=== PATIENT | male | born 1950 | race Caucasian/White ===

== ENCOUNTER 2017-05-06 11:19 | Inpatient (IN) ==
[2017-05-06] MEDS ORDERED: *HR* Promethazine 25 MG/ML VIAL IVP PRN ×2 (12:40→17:27)
[2017-05-06] MEDS ORDERED: Ondansetron 4 MG/2 ML VIAL IVP PRN (12:40)
[2017-05-06] MEDS ORDERED: Acetaminophen 325 MG TABLET PO PRN (12:40)
[2017-05-06] MEDS ORDERED: Naloxone 0.4 MG/ML INJ IVP PRN (12:40)
[2017-05-06] MEDS ORDERED: *HR* HYDROmorphone (PF) 1 MG/ML SYRINGE IVP PRN ×2 (12:40→17:27)
[2017-05-06] MEDS ORDERED: *HR* Morphine 2 MG/ML SYRINGE IVP PRN (12:54)
[2017-05-06] MEDS: Cholecalciferol (D-3) 1,000 UNIT TABLET PO SCH (13:09)
[2017-05-06] MEDS: 0.9 % Sodium Chloride 1,000 ML IVC SCH ×2 (13:24→21:38)
--- NOTE | 2017-05-06 13:34 | Internal Med History&Physical ---
Date of Encounter: 05/06/17 Time of Encounter: 12:30 Assessment and Plan (1) Ankle fracture, left Current visit: Yes Status: Acute Will place the pt into Med Surg for observation Reviewed X ray from [facility] ER - showing Left ankle fx with anteriorly dislocated tibia, fracture of distal fibula and medial malleolus Cont splint Ortho on board.. scheduled for surgery reviewed his labs - no electrolyte abnormalities Reviewed CXR by my self - no acute infiltrates, mild cardiomegaly noticed Reviewed EKG - no acute changes.. NSR with VR -67, No ST, T changes Pt is at low to intermediate risk for surgeries like Ankle fracture repair Cont gentle IVF for now will place him on Lovenox for DVT prophylaxis Qualifiers: Qualified Code(s): S82.892A - Other fracture of left lower leg, initial encounter for closed fracture (2) Anxiety Current visit: Yes Status: Chronic resumed home meds (3) HTN (hypertension) Current visit: Yes Status: Chronic resumed home meds Qualifiers: Qualified Code(s): I10 - Essential (primary) hypertension (4) CHF (congestive heart failure) Current visit: Yes Status: Chronic suspecting CHF in his history not sure about diastolic vs systolic.. mostly diastolic will get a 2 D Echo as routine work up, since he never had one he is not in exacerbation held Lasix due to surgery resumed all other home meds Qualifiers: Qualified Code(s): I50.9 - Heart failure, unspecified (5) DVT prophylaxis Current visit: Yes Status: Acute on Lovenox Internal Medicine - H&P: HPI Chief complaint: Left ankle fracture after fall Admitted From: Emergency Dept Plans for Post Hospital Care: Home History of present illness: Mr. Jacobs is a 66 year old male with known PMH of HTN, HLD, Borderline DM2, moderate MR pt who lives at a fdc was brought into [facility] ER after he sustained a fall this morning with left ankle fracture. As per ER records : Patient lives in a local fdc was getting ready to go to workshop tripped and fell injuring his ankle unable to bear weight this occurred just prior to arrival patient had a previous history of a fracture of one of the ankles in the past patient is having pain in the ankle unable to bear weight obvious deformity per caregiver that the patient does not complain of much pain denies any other injuries. Pt was placed on Splint and transferred to our hospital for further care. ER attending already talked to [facility] consultant Ortho here, who is planning on taking him to OR today. Currently pt is alert, awake and O to self..following all the commands. Seems to be at his baseline mentation ledesma. Past Med Surg Social Fam HX - Past Medical History Medical history: diabetes, GERD, hyperlipidemia, hypertension, other Psychiatric history: anxiety - Past Surgical History Surgical History: other - Social History Smoking Status: Never smoker Smokeless Tobacco Status: No Alcohol use: none Drug use: none Internal Medicine - H&P: Meds Aspirin [Adult Low Dose Aspirin EC] 81 mg PO DAILY 07/14/15 [History] Buspirone HCl [Buspar] 15 mg PO TID 07/14/15 [History] Dutasteride [Avodart] 0.5 mg PO DAILY 07/14/15 [History] Lisinopril 2.5 mg PO DAILY 10/15/15 [History] Montelukast [Singulair] 10 mg PO HS 10/15/15 [History] Quetiapine Fumarate [SEROquel] 100 mg PO BID 10/15/15 [History] Simvastatin [Zocor] 20 mg PO HS 10/15/15 [History] Tamsulosin HCl [Flomax] 0.4 mg PO DAILY 10/15/15 [History] Potassium Chloride [Klor-Con 10] 10 meq PO DAILY 10/03/16 [History] Cholecalciferol (Vitamin D3) [Vitamin D3] 10,000 unit PO QWEEK 10/26/16 [History ] traZODone [TraZODone] 150 mg PO HS 10/26/16 [History] Furosemide [Lasix] 20 mg PO DAILY 01/20/17 [History] Melatonin [Melatin] 6 mg PO HS 01/20/17 [History] Escitalopram [Lexapro] 20 mg PO DAILY 03/29/17 [History] Nystatin POWDER [Nystop] 1 appl TP BID 05/06/17 [History] 3 Allergy/AdvReac Type Severity Reaction Status Date / Time Banana Allergy See Verified 05/04/17 15:09 Comments chlorpheniramine Allergy See Verified 05/04/17 15:09 [From Chlor-Trimeton] Comments diazepam [From Valium] Allergy See Verified 05/04/17 15:09 Comments Penicillins Allergy See Verified 05/04/17 15:09 Comments tuberculin, purified protein Allergy See Verified 05/04/17 15:09 deriva Comments [From Aplisol] All Systems PM: A 10-system review of systems was performed and is negative for pertinent findings except as documented above in the HPI. Review of systems: All the systems are reviewed everything is benign except the systems and symptoms I mentioned in the history of present illness - Constitutional Vitals: Temp Pulse Resp BP Pulse Ox 98.9 F 71 20 149/64 90 05/06/17 12:40 05/06/17 12:40 05/06/17 12:40 05/06/17 12:40 05/06/17 12:40 General appearance: Present: A&O X 1, no acute distress, answers questions appropriately (unable to understand his language, but he does follow all the commands) - Respiratory Respiratory exam: Present: decreased breath sounds, wheezes (mild). Absent: rales, respiratory distress, rhonchi - Cardiovascular Cardiovascular exam: Present: RRR, +S1, +S2. Absent: diastolic murmur, gallop, rubs, systolic murmur - GI/Abdominal GI/Abdominal exam: Present: distended, normal bowel sounds, soft. Absent: rebound, rigid, tenderness - Extremities Exam Extremities exam: Present: tenderness (Left foot), warm. Absent: calf tenderness, mottling Additional comments: moderate swelling noticed around Left ankle.. Splint placed in.. Able to wiggle his toes in left foot. Rest of the joints are ok.
[2017-05-06] MEDS ORDERED: *HR* Enoxaparin 40 MG/0.4 ML SYRINGE SQ ONE (13:54)
[2017-05-06] MEDS ORDERED: Bupivacaine/Clonidine Syringe 1 EACH SYRINGE ONE (15:21)
[2017-05-06] MEDS ORDERED: *HR* FentaNYL (PF) 100 MCG/2 ML VIAL ONE (15:25)
[2017-05-06] MEDS ORDERED: *HR* Propofol 200 MG/20 ML VIAL IVP ONE (15:26)
[2017-05-06] MEDS ORDERED: *HR* Midazolam HCl 2 MG/2 ML VIAL ONE (15:26)
[2017-05-06] MEDS ORDERED: Lidocaine -MPF 2% 2 ML VIAL ONE (15:27)
[2017-05-06] MEDS ORDERED: *HR* Succinylcholine 200 MG/10 ML VIAL IVP ONE (15:27)
[2017-05-06] MEDS ORDERED: *HR* Rocuronium Bromide 50 MG/5 ML VIAL ONE (15:29)
--- NOTE | 2017-05-06 16:31 | Podiatry Consult Note ---
Date of Encounter: 05/06/17 Time of Encounter: 14:29 Assessment and Plan (1) Ankle fracture, left Current visit: Yes Status: Acute At this time the patient needs reduction of the ankle fracture. Currently the ankle is dislocated posteriorly and sooner intervention is better than later. At this time we have had difficulty contacting the cytogenetic technologist. After contacting the risk and legal we were instructed that currently they are not available and the engine house helper stated that she could inform us on the appropriate legal action. she instructed us that the appropriate legal action to take would be to have the hospitalist and surgeon signed the form in place of the cytogenetic technologist. The hospitalist signed the consent form as well as myself. Due to the posteriorly dislocated nature of the ankle fracture and the concern for ischemia on the skin this ankle fracture needs to have surgery sooner than later. The risks of not performing the surgery at this time include ischemia to the skin, wound, infection, loss of limb. The risks and complications will be discussed with the cytogenetic technologist at a later time as he seems to be unavailable. The surgery to be performed is open reduction, internal fixation of the left ankle fracture with reduction of the dislocation. Qualifiers: Qualified Code(s): S82.892A - Other fracture of left lower leg, initial encounter for closed fracture History of Present Illness Chief complaint: left ankle fracture HPI: Mr. Jacobs is a 66 year old male who is unable to give any or an accurate history patient was recently transported from a care facility and we were informed that his legal guardian is an cytogenetic technologist. The carefully related that he fell and injured his ankle. They relate that he receive x-rays and he is now here for an ankle fracture repair if possible. Past Med Surg Social Fam HX - Past Medical History Medical history: diabetes, GERD, hyperlipidemia, hypertension, other Psychiatric history: anxiety - Past Surgical History Surgical History: other - Social History Smoking Status: Never smoker Smokeless Tobacco Status: No Alcohol use: none Drug use: none Medications and Allergies Aspirin [Adult Low Dose Aspirin EC] 81 mg PO DAILY 07/14/15 [History] Buspirone HCl [Buspar] 15 mg PO TID 07/14/15 [History] Dutasteride [Avodart] 0.5 mg PO DAILY 07/14/15 [History] Lisinopril 2.5 mg PO DAILY 10/15/15 [History] Montelukast [Singulair] 10 mg PO HS 10/15/15 [History] Quetiapine Fumarate [SEROquel] 100 mg PO BID 10/15/15 [History] Simvastatin [Zocor] 20 mg PO HS 10/15/15 [History] Tamsulosin HCl [Flomax] 0.4 mg PO DAILY 10/15/15 [History] Potassium Chloride [Klor-Con 10] 10 meq PO DAILY 10/03/16 [History] Cholecalciferol (Vitamin D3) [Vitamin D3] 10,000 unit PO QWEEK 10/26/16 [History ] traZODone [TraZODone] 150 mg PO HS 10/26/16 [History] Furosemide [Lasix] 20 mg PO DAILY 01/20/17 [History] Melatonin [Melatin] 6 mg PO HS 01/20/17 [History] Escitalopram [Lexapro] 20 mg PO DAILY 03/29/17 [History] Nystatin POWDER [Nystop] 1 appl TP BID 05/06/17 [History] 3 Allergy/AdvReac Type Severity Reaction Status Date / Time Banana Allergy See Verified 05/04/17 15:09 Comments chlorpheniramine Allergy See Verified 05/04/17 15:09 [From Chlor-Trimeton] Comments diazepam [From Valium] Allergy See Verified 05/04/17 15:09 Comments Penicillins Allergy See Verified 05/04/17 15:09 Comments tuberculin, purified protein Allergy See Verified 05/04/17 15:09 deriva Comments [From Aplisol] All Systems Reviewed: A 10-system review of systems was performed and is negative for pertinent findings except as documented above in the HPI. Physical Exam - Constitutional Vitals: Temp Pulse Resp BP Pulse Ox 98.1 F 76 20 142/78 91 05/06/17 15:40 05/06/17 15:40 05/06/17 15:40 05/06/17 15:40 05/06/17 15:40 Exam: Capillary fill time intact to the digits. Edema noted to the left ankle. No open lesions, abrasions, or ulcerations. Sensation seems to be intact to the digits as the patient does react to palpation to the digits. Due to an accurate responses is difficult to determine how sensate the patient is. No range of motion of the ankle was tested. The radiographic exam demonstrates a posterior dislocation of the ankle with fibular fracture. See official report for details Results - Labs Labs: All other labs normal. Consult Discharge Plan - Plan Referrals: Muriel Stratton MD [Primary Care Provider] -
[2017-05-06] MEDS ORDERED: Clindamycin 900 MG/50 ML 900 MG/50 ML IV.SOLN IVPB ONE (16:55)
--- NOTE | 2017-05-06 16:55 | Anesthesia Evaluation PreOp ---
Date of Encounter: 05/06/17 Time of Encounter: 16:53 - Past History Planned Operation: ORIF Left Ankle Cardiac History: CHF, HTN, Hyperlipidemia Pulmonary History: Denies Any Significant HX FLAGSTONE LAYER History: Other (MRDD) Other Medical History: Diabetes Type II (borderline), Other Alcohol Use: none Drug use: none Medications and Allergies Aspirin [Adult Low Dose Aspirin EC] 81 mg PO DAILY 07/14/15 [History] Buspirone HCl [Buspar] 15 mg PO TID 07/14/15 [History] Dutasteride [Avodart] 0.5 mg PO DAILY 07/14/15 [History] Lisinopril 2.5 mg PO DAILY 10/15/15 [History] Montelukast [Singulair] 10 mg PO HS 10/15/15 [History] Quetiapine Fumarate [SEROquel] 100 mg PO BID 10/15/15 [History] Simvastatin [Zocor] 20 mg PO HS 10/15/15 [History] Tamsulosin HCl [Flomax] 0.4 mg PO DAILY 10/15/15 [History] Potassium Chloride [Klor-Con 10] 10 meq PO DAILY 10/03/16 [History] Cholecalciferol (Vitamin D3) [Vitamin D3] 10,000 unit PO QWEEK 10/26/16 [History ] traZODone [TraZODone] 150 mg PO HS 10/26/16 [History] Furosemide [Lasix] 20 mg PO DAILY 01/20/17 [History] Melatonin [Melatin] 6 mg PO HS 01/20/17 [History] Escitalopram [Lexapro] 20 mg PO DAILY 03/29/17 [History] Nystatin POWDER [Nystop] 1 appl TP BID 05/06/17 [History] 3 Allergy/AdvReac Type Severity Reaction Status Date / Time Banana Allergy See Verified 05/04/17 15:09 Comments chlorpheniramine Allergy See Verified 05/04/17 15:09 [From Chlor-Trimeton] Comments diazepam [From Valium] Allergy See Verified 05/04/17 15:09 Comments Penicillins Allergy See Verified 05/04/17 15:09 Comments tuberculin, purified protein Allergy See Verified 05/04/17 15:09 deriva Comments [From Aplisol] - Meds/Allergy Pre-op Review Medications Reviewed: Yes Allergies Reviewed: Yes Beta Blockers on Current Med List: No Anesthesia Results - Labs Laboratory Tests 05/06/17 05/06/17 05/06/17 11:15 11:15 11:15 WBC 9.0 Hgb 13.6 Hct 39.4 Plt Count 207 PT INR APTT 29.4 Sodium 141 Potassium 4.2 BUN 23 Creatinine 1.13 05/06/17 11:15 WBC Hgb Hct Plt Count PT 12.8 H INR 1.2 APTT Sodium Potassium BUN Creatinine - Imaging EKG: report reviewed (12/02/2016 SINUS RHYTHM WITH MARKED SINUS ARRHYTHMIA MARKED LEFT AXIS DEVIATION PATTERN CONSISTENT WITH PULMONARY DISEASE Poor R wave progression) Anesthesia Exam Vital Signs/O2 Sat, Most Current Temp Pulse Resp BP Pulse Ox 98.1 F 76 20 142/78 91 05/06/17 15:40 05/06/17 15:40 05/06/17 15:40 05/06/17 15:40 05/06/17 15:40 Height: 6'/1.83 m Weight: 305 lbs/138.6 kg - HEENT Teeth: Edentulous Oral Opening: Greater than 3 - FLAGSTONE LAYER LOC: Uncooperative, Unable to assess - Cardiac Rhythm: Regular Murmur: None - Pulmonary Breath Sounds: bilateral Clear Respiratory Effort: Symmetrical Anesthesia Assess/Plan ASA Score: 3 (Patient unable to give consent. Consent form signed by two physicians (Dr Beck and Dr Castle) stating surgery is urgent.) Modified [place] Scale for Level of Consciousness: Anixous, agitated or restless Anesthetic Plan: General Monitoring Plan: Standard Monitors Recovery Plan: PACU
[2017-05-06] MEDS ORDERED: Ketamine *HR* 500 MG/10 ML MDV ONE (17:10)
[2017-05-06] MEDS ORDERED: Dexamethasone 4 MG/ML VIAL ONE (17:21)
[2017-05-06] MEDS ORDERED: Ondansetron 4 MG/2 ML VIAL ONE (17:21)
[2017-05-06] MEDS ORDERED: *HR* Magnesium Sulfate 1 GM/2 ML VIAL ONE (17:31)
[2017-05-06] MEDS ORDERED: *HR* HYDROmorphone 2 MG/ML SYRINGE ONE (17:36)
[2017-05-06] MEDS ORDERED: Acetaminophen IV 1,000 MG/100 ML INFUS..BTL ONE (18:06)
[2017-05-06] MEDS ORDERED: Perflutren Lipid Microsphere 1.3 ML in 0.9 % Sodium Chloride 8.7 ML IVP ONE (20:03)
--- NOTE | 2017-05-06 20:07 | Anesthesia Evaluation Post Op ---
Date of Encounter: 05/06/17 Time of Encounter: 20:00 - Vital Signs Vital Signs: Vital Signs/O2 Sat/Glucose, Most Current Temp Pulse Resp BP Pulse Ox 05/06/17 20:02 69 12 135/78 92 05/06/17 19:52 97.2 F L 85 12 104/86 92 05/06/17 19:42 70 12 136/87 95 05/06/17 19:32 67 12 130/77 93 05/06/17 19:22 97.1 F L 67 14 132/87 94 05/06/17 19:12 68 12 131/84 93 05/06/17 19:02 68 12 133/80 93 05/06/17 18:52 98.8 F 67 11 130/80 95 - Lungs Lungs: Clear Ascult./Percussion - Airway Airway: Non-obstructed - Cardiovascular Regular Rate - Mental Status Mental Status: Asleep with brisk response to light stimulation - Pain Pain Scale: 0 - Nausea Vomiting Nausea Vomiting: Not Present - Hydration Hydration: NPO - Discharge PostOp Status: Transfer Patient to floor
[2017-05-06] MEDS: Famotidine 20 MG TABLET PO SCH (21:43)
[2017-05-06] MEDS: Melatonin 3 MG TABLET PO SCH (21:43)
[2017-05-06] MEDS: traZODone 50 MG TABLET PO SCH (21:44)
--- NOTE | 2017-05-06 22:48 | Operative Note ---
Date of procedure: 05/06/17 Pre-op diagnosis: left ankle fracture Post-op diagnosis: same Procedure: Open reduction internal fixation left ankle fracture, bimalleolar Implants: Coyote plates with associated screws Anesthesia: GAURANG Surgeon: Robert Beck Tourniquet Time (Minutes): 50 Condition: stable Disposition: floor Procedure in Detail: The patient was administered IV antibiotics. The patient was transported to the operative room and placed on operating table in the supine position. Following anesthesia the extremity was scrubbed prepped and draped in the usual aseptic fashion. A timeout was performed. The lower extremity was raised to 60 degrees for hemostasis and exsanguinated utilizing an Esmarch bandage. The pneumatic tourniquet was inflated. The leg was lowered to the table. An incision was made and deepened through subcutaneous tissue with care taken to identify and retract all vital neurovascular structures. The fracture of the distal fibula was identified and noted to be oblique in nature. The site was reduced utilizing lobster claw, due to poor bone quality a lag screw was not used. The site was stabilized temporarily utilizing 2 K wire fixation instead. A neutralization plate was applied. The fracture site was noted to have stable fixation at which point the temporary K wire fixation was removed. The syndesmosis was tested and noted to be stable. Attention was then directed to the medial malleolus. Incision was made over the medial malleolus and deepened through subcutaneous tissue with care taken to identify and retract all vital neurovascular structures. The medial malleolar fracture was identified and temporarily fixated with K wires. 2 cannulated screws were then added for permanent fixation. The incision site was irrigated with copious amounts of normal saline and closed in a layered fashion. A dry sterile dressing was applied. The pneumatic tourniquet was deflated and a hyperemic response was noted to all digits. The patient was placed in a posterior splint. The patient tolerated the procedure and anesthesia well and was transported to the recovery room with vital signs stable and vascular status intact to both feet. The patient will be readmitted to the floor per anesthesia. The patient will keep the dressings clean, dry, intact until the follow-up appointment in 1-2 weeks. The patient's weightbearing status will be strict nonweightbearing. The patient can be discharged whenever stable and cleared by the hospitalist. No postoperative antibiotics will be needed. The patient may need pain medication.
[2017-05-07 05:33] LABS: Basophils % 0.1 %; Hematocrit 32.4 % (37.5-50.1); Hemoglobin 10.4 g/dL (12.9-16.9); Immature Granulocytes % 0.9 % (0-4); Lymphocytes # 0.6 K/mcL (0.6-4.6); Lymphocytes % 6.2 %; Mean Corpuscular HGB Conc 32.1 g/dL (31.6-35.5); Mean Corpuscular Volume 90.3 fL (83.0-100.0); Mean Platelet Volume 9.2 fL (9.4-12.4); Monocytes # 0.5 K/mcL (0.0-1.3); Neutrophils # 7.7 K/mcL (1.6-8.9); Platelet Count 195 K/mcL (140-400); Red Blood Count 3.59 M/mcL (4.19-5.50); Red Cell Distribution Width 13.7 % (11.5-14.5); Segmented Neutrophils % 86.8 %
[2017-05-07] MEDS: 0.9 % Sodium Chloride 1,000 ML IVC SCH (05:44)
[2017-05-07 05:51] LABS: BUN/Creatinine Ratio 21 (6-26); Blood Urea Nitrogen 21 mg/dL (8-26); Calcium 7.5 mg/dL (8.6-10.8); Carbon Dioxide 22 mEq/L (19-29); Chloride 110 mEq/L (98-109); Glucose 186 mg/dL (70-99); Osmolality,Calculated 298 (280-300); Potassium 3.8 mEq/L (3.5-4.5); Sodium 140 mEq/L (136-145); eGFR For African Americans > 60 (> 60); eGFR For Non-African Americans > 60 (> 60)
[2017-05-07] MEDS: Finasteride 5 MG TABLET PO SCH (07:50)
[2017-05-07] MEDS: Famotidine 20 MG TABLET PO SCH ×2 (07:50→20:20)
[2017-05-07] MEDS: Cholecalciferol (D-3) 1,000 UNIT TABLET PO SCH (07:50)
[2017-05-07] MEDS: Aspirin Enteric Coated 81 MG Tablet PO SCH (07:50)
[2017-05-07] MEDS: *HR* HYDROcodone/Acet 5/325 mg TABLET PO PRN (11:33)
--- NOTE | 2017-05-07 13:12 | Internal Med Progress Note ---
Date of Encounter: 05/07/17 Time of Encounter: 10:50 - Assessment and plan (1) Ankle fracture, left Current Visit: Yes Status: Acute Assessment and plan: Status post open reduction and internal fixation. Continue pain control. Awaiting evaluation with physical therapy. Qualifiers: Encounter type: initial encounter Fracture type: closed Qualified Code(s) : S82.892A - Other fracture of left lower leg, initial encounter for closed fracture (2) CHF (congestive heart failure) Current Visit: Yes Status: Suspected Assessment and plan: Patient takes Lasix at home. 2-D echocardiogram has been ordered. We will follow results. No signs of acute heart failure at this time. Qualifiers: Qualified Code(s): I50.9 - Heart failure, unspecified (3) HTN (hypertension) Current Visit: Yes Status: Chronic Assessment and plan: Fairly controlled with intermittent elevations which could be related to pain. Will monitor for now. if persistently elevated we will increase lisinopril dosage Qualifiers: Hypertension type: essential hypertension Qualified Code(s): I10 - Essential (primary) hypertension (4) DVT prophylaxis Current Visit: Yes Status: Acute Assessment and plan: Start Lovenox today. - Subjective Interval history: Patient is feeling better today. Pain is much better since his surgery yesterday. Has not had physical therapy yet. No other complaints at this time. - Constitutional Vitals: Temp Pulse Resp BP Pulse Ox 98.3 F 71 18 119/73 94 05/07/17 11:28 05/07/17 11:28 05/07/17 11:28 05/07/17 11:28 05/07/17 11:28 General appearance: Present: cooperative, A&O X 1, no acute distress, answers questions appropriately - Respiratory Respiratory exam: Present: CTAB. Absent: accessory muscle use, rales, rhonchi, wheezes - Cardiovascular Cardiovascular exam: Present: RRR, +S1, +S2. Absent: diastolic murmur, gallop, rubs, systolic murmur - GI/Abdominal GI/Abdominal exam: Present: normal bowel sounds, soft, no peritoneal signs. Absent: distended, tenderness - Extremities Exam Extremities exam: Present: warm, radial pulses palpable and symmetrical. Absent : calf tenderness, cyanotic, pedal edema Additional comments: Left foot bandaged and in cast. Internal Medicine: Result - Labs CBC & Chem 7: 05/07/17 04:58 05/07/17 04:58 Labs: Short CBC 05/07/17 Range/Units 04:58 WBC 8.9 (4.3-11.1) K/mcL Hgb 10.4 L D (12.9-16.9) g/dL Hct 32.4 L (37.5-50.1) % Plt Count 195 (140-400) K/mcL Neutrophils # 7.7 (1.6-8.9) K/mcL BMP 05/07/17 04:58 Sodium 140 Potassium 3.8 Chloride 110 H Carbon Dioxide 22 BUN 21 Creatinine 1.01 Glucose 186 H Calcium 7.5 L D - Impressions Impressions Ankle X-Ray 05/06/17 17:45 IMPRESSION: Intraprocedural fluoroscopic spot images as above. See separate procedure report for more information. D/ / Raman Quispe MD / Raman Quispe MD Interpreting Provider: Raman Quispe MD Fluoroscopy 05/06/17 17:45 IMPRESSION: Intraprocedural fluoroscopic spot images as above. See separate procedure report for more information. D/ / Raman Quispe MD / Raman Quispe MD Interpreting Provider: Raman Quispe MD - VTE Documentation of Mechanical Device: Intermittent pneumatic compression device Consult Discharge Plan - Plan Referrals: Muriel Stratton MD [Primary Care Provider] -
[2017-05-07] MEDS: *HR* Enoxaparin 40 MG/0.4 ML SYRINGE SQ SCH (15:28)
[2017-05-07] MEDS: traZODone 50 MG TABLET PO SCH (20:20)
[2017-05-07] MEDS: Melatonin 3 MG TABLET PO SCH (20:21)
[2017-05-08] MEDS: *HR* HYDROcodone/Acet 5/325 mg TABLET PO PRN (04:47)
[2017-05-08] MEDS: Finasteride 5 MG TABLET PO SCH (09:43)
[2017-05-08] MEDS: Famotidine 20 MG TABLET PO SCH ×2 (09:44→21:52)
[2017-05-08] MEDS: Aspirin Enteric Coated 81 MG Tablet PO SCH (09:44)
[2017-05-08] MEDS: Cholecalciferol (D-3) 1,000 UNIT TABLET PO SCH (09:44)
[2017-05-08] MEDS: *HR* Enoxaparin 40 MG/0.4 ML SYRINGE SQ SCH (12:22)
--- NOTE | 2017-05-08 15:08 | Internal Med Progress Note ---
Date of Encounter: 05/08/17 Time of Encounter: 10:10 - Assessment and plan (1) Ankle fracture, left Current Visit: Yes Status: Acute Assessment and plan: Continue physical therapy. Physical therapy recommended ECF placement. We will consult social insurance administrator to see what arrangements can be made for the patient. Qualifiers: Encounter type: initial encounter Fracture type: closed Qualified Code(s) : S82.892A - Other fracture of left lower leg, initial encounter for closed fracture (2) CHF (congestive heart failure) Current Visit: Yes Status: Suspected Assessment and plan: Patient unable to cooperate with 2-D echocardiogram. Patient does appear to have normal systolic function. Would recommend outpatient follow-up for further management. Qualifiers: Qualified Code(s): I50.9 - Heart failure, unspecified (3) HTN (hypertension) Current Visit: Yes Status: Chronic Assessment and plan: Monitor blood pressure. Currently well controlled Qualifiers: Hypertension type: essential hypertension Qualified Code(s): I10 - Essential (primary) hypertension (4) DVT prophylaxis Current Visit: Yes Status: Acute Assessment and plan: Continue Lovenox - Subjective Interval history: Patient continues to do well. No new complaints at this time. Pain is well controlled. - Constitutional Vitals: Temp Pulse Resp BP Pulse Ox 98.4 F 83 16 134/73 96 05/08/17 10:29 05/08/17 10:29 05/08/17 10:29 05/08/17 10:29 05/08/17 10:29 General appearance: Present: cooperative, A&O X 1, no acute distress, answers questions appropriately - Neck Neck exam general surgery: Present: supple, trachea midline. Absent: lymphadenopathy - Respiratory Respiratory exam: Present: CTAB. Absent: accessory muscle use, rales, rhonchi, wheezes - GI/Abdominal GI/Abdominal exam: Present: normal bowel sounds, soft, no peritoneal signs. Absent: distended, tenderness - Extremities Exam Extremities exam: Present: warm, radial pulses palpable and symmetrical. Absent : calf tenderness, cyanotic, pedal edema Additional comments: Left lower extremity bandaged and splinted. Internal Medicine: Result - Labs CBC & Chem 7: 05/07/17 04:58 05/07/17 04:58 - VTE Documentation of Mechanical Device: Intermittent pneumatic compression device Consult Discharge Plan - Plan Referrals: Muriel Stratton MD [Primary Care Provider] -
[2017-05-08] MEDS: traZODone 50 MG TABLET PO SCH (21:52)
[2017-05-08] MEDS: Melatonin 3 MG TABLET PO SCH (21:52)
[2017-05-09] MEDS: Finasteride 5 MG TABLET PO SCH (08:57)
[2017-05-09] MEDS: Cholecalciferol (D-3) 1,000 UNIT TABLET PO SCH (08:58)
[2017-05-09] MEDS: Aspirin Enteric Coated 81 MG Tablet PO SCH (08:58)
[2017-05-09] MEDS: Famotidine 20 MG TABLET PO SCH ×2 (08:58→20:55)
[2017-05-09] MEDS: *HR* Enoxaparin 40 MG/0.4 ML SYRINGE SQ SCH (14:13)
--- NOTE | 2017-05-09 16:47 | Podiatry Progress Note ---
Date of Encounter: 05/09/17 Time of Encounter: 12:35 - Assessment and Plan (1) Ankle fracture, left Current Visit: Yes Status: Acute POD #3, Posterior splint is dry and intact, no c/o pain. Toes are pink, warm and dry, CFT is immediate, no calf pain with manual compression. Plan: Keep posterior splint dry and intact until Podiatry f/u appointment. Remain NWB to LLE. PT recommended ECF placement. Social work coordinating discharge plan. Will need a f/u in Podiatry clinic with Dr. Beck or Khai Crawford CNP a week after discharge from the hospital. Qualifiers: Encounter type: initial encounter Fracture type: closed Qualified Code(s) : S82.892A - Other fracture of left lower leg, initial encounter for closed fracture Subjective Interval history: Patient is s/p Open reduction internal fixation left ankle fracture, bimalleolar by Dr. Beck on 05/06/17. Patient is sitting up in bed eating lunch with posterior splint intact to the LLE. No c/o pain. Denies calf pain. Objective - Vital Signs Vital Signs: Vital Signs Temp Pulse Resp BP Pulse Ox 05/09/17 14:39 100.5 F H 82 20 162/72 93 05/09/17 11:07 98.3 F 73 20 127/77 97 05/09/17 06:55 98.4 F 66 20 138/92 96 05/09/17 00:45 97.6 F 76 18 146/93 94 05/08/17 20:05 97.7 F 69 18 144/82 95 Intake and Output 05/09/17 05/09/17 05/09/17 07:59 15:59 23:59 Intake Total 240 / 240 Output Total 75 / 75 200 / 200 Balance -75 / -75 40 / 40 Intake: Oral 240 / 240 Output: Urine 75 / 75 200 / 200 Other: Meal Breakfast Percent of Meal Consumed 95% # Urine Diapers 1 Blood Glucose* 107 108 109 - Exam Exam: General appearance: alert awake oriented, Calm and pleasant, no acute distress. . Vascular: Left: Toes are pink, warm and dry, No evidence of cyanosis, pallor or rubor, No calf pain with manual compression. capillary refill time is immediate to digits. Neurologic: Sensation intact with light touch to foot. . Postop Exam: S/P Posterior splint dry and intact. - Lab Result Diagrams: 05/07/17 04:58 05/07/17 04:58 Labs: Abnormal lab results RBC 3.59 M/mcL (4.19-5.50) L 05/07/17 04:58 Hgb 10.4 g/dL (12.9-16.9) L D 05/07/17 04:58 Hct 32.4 % (37.5-50.1) L 05/07/17 04:58 MPV 9.2 fL (9.4-12.4) L 05/07/17 04:58 Chloride 110 mEq/L (98-109) H 05/07/17 04:58 Glucose 186 mg/dL (70-99) H 05/07/17 04:58 POC Glucose 108 (58-89) H 05/09/17 11:08 Calcium 7.5 mg/dL (8.6-10.8) L D 05/07/17 04:58 - VTE Documentation of Mechanical Device: Intermittent pneumatic compression device Consult Discharge Plan - Plan Referrals: Muriel Stratton MD [Primary Care Provider] -
--- NOTE | 2017-05-09 16:55 | Internal Med Progress Note ---
Date of Encounter: 05/09/17 Time of Encounter: 10:40 - Assessment and plan (1) Ankle fracture, left Current Visit: Yes Status: Acute Assessment and plan: Status post open reduction and internal fixation. Continue physical therapy. Awaiting placement. Continue anticoagulation with Lovenox. Qualifiers: Encounter type: initial encounter Fracture type: closed Qualified Code(s) : S82.892A - Other fracture of left lower leg, initial encounter for closed fracture (2) CHF (congestive heart failure) Current Visit: Yes Status: Suspected Assessment and plan: We will check BNP. 2-D echo was incomplete due to patient's noncooperation. Continue Lasix at this time. Qualifiers: Qualified Code(s): I50.9 - Heart failure, unspecified (3) HTN (hypertension) Current Visit: Yes Status: Chronic Assessment and plan: Blood pressure is well controlled. Qualifiers: Hypertension type: essential hypertension Qualified Code(s): I10 - Essential (primary) hypertension (4) DVT prophylaxis Current Visit: Yes Status: Acute - Subjective Interval history: Patient appears to be in good spirits. Denies any pain at this time. No other complaints reported. - Constitutional Vitals: Temp Pulse Resp BP Pulse Ox 100.5 F H 82 20 162/72 93 05/09/17 14:39 05/09/17 14:39 05/09/17 14:39 05/09/17 14:39 05/09/17 14:39 General appearance: Present: cooperative, A&O X 1, no acute distress, answers questions appropriately - Respiratory Respiratory exam: Present: CTAB. Absent: accessory muscle use, rales, rhonchi, wheezes - Cardiovascular Cardiovascular exam: Present: RRR, +S1, +S2. Absent: diastolic murmur, gallop, rubs, systolic murmur - GI/Abdominal GI/Abdominal exam: Present: normal bowel sounds, soft, no peritoneal signs. Absent: distended, tenderness - Extremities Exam Extremities exam: Present: warm, radial pulses palpable and symmetrical. Absent : calf tenderness, cyanotic, pedal edema Additional comments: Left foot in posterior splint. Internal Medicine: Result - Labs CBC & Chem 7: 05/07/17 04:58 05/07/17 04:58 - Impressions Impressions Echocardiogram 05/07/17 13:54 Impressions: Study was stopped prematurely - patient unable to cooperate. LV systolic function appears normal in the PLAX view. It is not well visualized in other views. Mild increase in LV wall thickness. RV is not well visualized. Valves not well evaluated on this limited study. Left Ventricular Wall Motion: Rest Echo Findings The apex, apical inferior, mid inferior, basal inferior, apical anterior, mid anterior, basal anterior, apical septal, mid inferior septal, basal inferior septal, apical lateral, mid anterior lateral and basal anterior lateral wilkes were not visualized. All other wall segments showed normal motion. Findings: Study Quality * Technically sub-optimal due to body habitus and altered mental status. Patient unable to position for study. ECG Findings * Normal sinus rhythm. Aorta * Normally sized aortic root. Left Ventricle * Mild concentric left ventricular hypertrophy. * Normal LV size. * Normal LV systolic function based only on PLAX view. Aortic Valve * No aortic regurgitation. * Aortic valve not well visualized. Mitral Valve * No mitral regurgitation in PLAX view. * Normal appearing structure - not well seen in all views. Tricuspid Valve * Tricuspid valve not well visualized. * No tricuspid regurgitation. Right Ventricle * Not well visualized. Left Atrium * Left atrium is not well visualized. Right Atrium * Right atrium is not well visualized. Interatrial Septum * Interatrial septum not well evaluated. Pulmonic Valve * Pulmonic valve not well visualized. Pericardium * There is no pericardial effusion present. IVC * The IVC is not well evaluated. Pulmonary Artery * Pulmonary artery not well visualized. - VTE Documentation of Mechanical Device: Intermittent pneumatic compression device Consult Discharge Plan - Plan Referrals: Muriel Stratton MD [Primary Care Provider] -
[2017-05-09] MEDS: traZODone 50 MG TABLET PO SCH (20:55)
[2017-05-09] MEDS: Melatonin 3 MG TABLET PO SCH (20:55)
[2017-05-10 06:47] LABS: Basophils % 0.3 %; Eosinophils # 0.1 K/mcL (0.0-0.6); Eosinophils % 1.7 %; Hematocrit 36.8 % (37.5-50.1); Immature Granulocytes % 1.2 % (0-4); Lymphocytes # 0.9 K/mcL (0.6-4.6); Lymphocytes % 16.2 %; Mean Corpuscular HGB Conc 32.6 g/dL (31.6-35.5); Mean Corpuscular Hemoglobin 28.2 pg (28.0-33.3); Mean Corpuscular Volume 86.6 fL (83.0-100.0); Mean Platelet Volume 8.6 fL (9.4-12.4); Monocytes # 0.5 K/mcL (0.0-1.3); Monocytes % 7.9 %; Neutrophils # 4.2 K/mcL (1.6-8.9); Platelet Count 215 K/mcL (140-400); Red Blood Count 4.25 M/mcL (4.19-5.50); Red Cell Distribution Width 13.4 % (11.5-14.5); Segmented Neutrophils % 72.7 %
[2017-05-10] MEDS: Finasteride 5 MG TABLET PO SCH (09:45)
[2017-05-10] MEDS: Famotidine 20 MG TABLET PO SCH (09:46)
[2017-05-10] MEDS: Cholecalciferol (D-3) 1,000 UNIT TABLET PO SCH (09:46)
[2017-05-10] MEDS: Aspirin Enteric Coated 81 MG Tablet PO SCH (09:46)
--- NOTE | 2017-05-10 12:15 | Physician Discharge Referral ---
ExtendedCare Referral Info Transfer To: [place] Provider in Charge after Transfer: PCP Institutional Level of Care: Skilled - Diagnosis (1) Ankle fracture, left Priority: Primary Status: Acute (2) Anxiety Priority: Secondary Status: Chronic (3) HTN (hypertension) Priority: Secondary Status: Chronic (4) CHF (congestive heart failure) Priority: Secondary Status: Suspected Prognosis: Fair - Transfer Medications Prescriptions: HYDROcodone/Acet 5/325 mg [[place] 5-325 mg] 1 tab PO Q8H PRN #10 tablet PRN Reason: Moderate Pain (4-6) Home Medications: Aspirin [Adult Low Dose Aspirin EC] 81 mg PO DAILY 07/14/15 [History] Buspirone HCl [Buspar] 15 mg PO TID 07/14/15 [History] Dutasteride [Avodart] 0.5 mg PO DAILY 07/14/15 [History] Lisinopril 2.5 mg PO DAILY 10/15/15 [History] Montelukast [Singulair] 10 mg PO HS 10/15/15 [History] Quetiapine Fumarate [Seroquel] 100 mg PO BID 10/15/15 [History] Simvastatin [Zocor] 20 mg PO HS 10/15/15 [History] Tamsulosin HCl [Flomax] 0.4 mg PO DAILY 10/15/15 [History] Cholecalciferol (Vitamin D3) [Vitamin D3] 10,000 unit PO QWEEK 10/26/16 [History ] traZODone [TraZODone] 150 mg PO HS 10/26/16 [History] Furosemide [Lasix] 20 mg PO DAILY 01/20/17 [History] Melatonin [Melatin] 6 mg PO HS 01/20/17 [History] Escitalopram [Lexapro] 20 mg PO DAILY 03/29/17 [History] Nystatin POWDER [Nystop] 1 appl TP BID 05/06/17 [History] HYDROcodone/Acet 5/325 mg [[place] 5-325 mg] 1 tab PO Q8H PRN #10 tablet 05/10/17 [Rx] Allergies/Adverse Reactions: 3 Allergy/AdvReac Type Severity Reaction Status Date / Time Banana Allergy See Verified 05/04/17 15:09 Comments chlorpheniramine Allergy See Verified 05/04/17 15:09 [From Chlor-Trimeton] Comments diazepam [From Valium] Allergy See Verified 05/04/17 15:09 Comments Penicillins Allergy See Verified 05/04/17 15:09 Comments tuberculin, purified protein Allergy See Verified 05/04/17 15:09 deriva Comments [From Aplisol] - Respiratory Orders None Smoking Cessation: Smoking cessation has been advised. For more information, call the [place] Tobacco Quit Line at 4-610-VRXJ-NOW. - Mobility Orders Other (Non weight bearing until seen by Podiatry) - Rehabiliation Orders Rehab Potential: Fair Other: As instructed by PT - Diet Orders No Added Salt (PIOTR) (Diabetic diet) CERTIFICATION: I certify that the transfer of the above named patient to an Extended Care Facility is necessary for the continuing treatment of the diagnosis listed. The above information is true and accurate reflection of patient's current condition. Confidential - Redisclosure prohibited without a patient's written consent.
--- NOTE | 2017-05-10 12:23 | Discharge Summary ---
Date of Encounter: 05/10/17 Time of Encounter: 12:20 - Discharge Diagnosis (1) Ankle fracture, left Priority: Primary Status: Acute Qualifiers: Encounter type: initial encounter Fracture type: closed Qualified Code(s) : S82.892A - Other fracture of left lower leg, initial encounter for closed fracture (2) Anxiety Priority: Secondary Status: Chronic (3) HTN (hypertension) Priority: Secondary Status: Chronic Qualifiers: Hypertension type: essential hypertension Qualified Code(s): I10 - Essential (primary) hypertension (4) CHF (congestive heart failure) Priority: Secondary Status: Suspected Qualifiers: Congestive heart failure type: unspecified congestive heart failure type Congestive heart failure chronicity: chronic Qualified Code(s): I50.9 - Heart failure, unspecified (5) Intellectual disability Priority: Secondary Status: Acute (6) DVT prophylaxis Priority: Secondary Status: Acute - Discharge Medications Prescriptions: HYDROcodone/Acet 5/325 mg [[place] 5-325 mg] 1 tab PO Q8H PRN #10 tablet PRN Reason: Moderate Pain (4-6) Home Medications: Aspirin [Adult Low Dose Aspirin EC] 81 mg PO DAILY 07/14/15 [History] Buspirone HCl [Buspar] 15 mg PO TID 07/14/15 [History] Dutasteride [Avodart] 0.5 mg PO DAILY 07/14/15 [History] Lisinopril 2.5 mg PO DAILY 10/15/15 [History] Montelukast [Singulair] 10 mg PO HS 10/15/15 [History] Quetiapine Fumarate [Seroquel] 100 mg PO BID 10/15/15 [History] Simvastatin [Zocor] 20 mg PO HS 10/15/15 [History] Tamsulosin HCl [Flomax] 0.4 mg PO DAILY 10/15/15 [History] Cholecalciferol (Vitamin D3) [Vitamin D3] 10,000 unit PO QWEEK 10/26/16 [History ] traZODone [TraZODone] 150 mg PO HS 10/26/16 [History] Furosemide [Lasix] 20 mg PO DAILY 01/20/17 [History] Melatonin [Melatin] 6 mg PO HS 01/20/17 [History] Escitalopram [Lexapro] 20 mg PO DAILY 03/29/17 [History] Nystatin POWDER [Nystop] 1 appl TP BID 05/06/17 [History] HYDROcodone/Acet 5/325 mg [[place] 5-325 mg] 1 tab PO Q8H PRN #10 tablet 05/10/17 [Rx] Allergies/Adverse Reactions: 3 Allergy/AdvReac Type Severity Reaction Status Date / Time Banana Allergy See Verified 05/04/17 15:09 Comments chlorpheniramine Allergy See Verified 05/04/17 15:09 [From Chlor-Trimeton] Comments diazepam [From Valium] Allergy See Verified 05/04/17 15:09 Comments Penicillins Allergy See Verified 05/04/17 15:09 Comments tuberculin, purified protein Allergy See Verified 05/04/17 15:09 deriva Comments [From Aplisol] Procedures/tests Complete & Pending: Procedures Performed prior 72 hours Category Date Time Status EV echocardiogram Routine Y 05/07/17 13:54 Completed Date of admission: 05/09/17 13:11 Primary care physician: Muriel Stratton Consults: 05/07/17 07:54 Consult to [facility] [place] [CONS] Routine Reason for SW Consult: discharge planning 05/07/17 07:55 Consult to Occupational Therapy [CONS] Routine Comment: Evaluate, develop and implement POC Reason for Consult: s/p left ankle fracture/ORIF Consult to Physical Therapy [CONS] Routine Comment: Evaluate, develop and implement POC Reason for Consult: S/p left ankle ORIF Discharging clinician: Yenni Brown - Patient Status Disposition: Transfer SNF Condition: Fair Functional capacity at discharge: wheelchair bound (Non-weight bearing on ankle) Overall status at discharge: patient is progressing back to baseline - Discharge Instructions Instructions: Chronic Hypertension (DC) Follow Up With: Muriel Stratton MD [Primary Care Provider] - - Diet and Activity Activity: as per physical therapy Diet: advance to your usual diet Interval History: Mr. Jacobs is a 66 year old male with known PMH of HTN, HLD, Borderline DM2, moderate MR pt who lives at a prison was brought into [facility] ER after he sustained a fall this morning with left ankle fracture. As per ER records : Patient lives in a local prison was getting ready to go to workshop tripped and fell injuring his ankle unable to bear weight this occurred just prior to arrival patient had a previous history of a fracture of one of the ankles in the past patient is having pain in the ankle unable to bear weight obvious deformity per caregiver that the patient does not complain of much pain denies any other injuries. Pt was placed on Splint and transferred to our hospital for further care. ER attending already talked to foundation drill operator helper Ortho here, who is planning on taking him to OR today. Currently pt is alert, awake and Oriented to self. following all the commands. Seems to be at his baseline mentation ledesma. Hospital course: Patient had ORIF done. Treated with pain which was adequately controlled. He Qualified to ECF at [facility]. He was discharged in stable condition. - Time Spent with Patient Total time spent providing and/or coordinating discharge services: Less than 30 minutes - Constitutional Vitals: Temp Pulse Resp BP Pulse Ox 99.2 F 70 20 123/88 94 05/10/17 11:28 05/10/17 11:28 05/10/17 11:28 05/10/17 11:28 05/10/17 11:28 General appearance: Present: cooperative, A&O X 1, no acute distress, answers questions appropriately - Head Head exam: Present: atraumatic, normocephalic - Respiratory Respiratory exam: Present: CTAB. Absent: accessory muscle use, rales, rhonchi, wheezes - Cardiovascular Cardiovascular exam: Present: RRR, +S1, +S2. Absent: diastolic murmur, gallop, rubs, systolic murmur - Extremities Exam Additional comments: Left ankle wrapped, edema was improved within two days of discharge.
[2017-05-10] MEDS: *HR* Enoxaparin 40 MG/0.4 ML SYRINGE SQ SCH (14:24)
--- NOTE | 2017-05-10 14:38 | Physician Discharge Referral ---
ExtendedCare Referral Info Transfer To: [place] Provider in Charge after Transfer: PCP Institutional Level of Care: Intermediate - Diagnosis (1) Ankle fracture, left Priority: Primary Status: Acute (2) Anxiety Priority: Secondary Status: Chronic (3) HTN (hypertension) Priority: Secondary Status: Chronic (4) CHF (congestive heart failure) Priority: Secondary Status: Suspected (5) Intellectual disability Priority: Secondary Status: Acute Prognosis: Fair - Transfer Medications Prescriptions: HYDROcodone/Acet 5/325 mg [[place] 5-325 mg] 1 tab PO Q8H PRN #10 tablet PRN Reason: Moderate Pain (4-6) Home Medications: Aspirin [Adult Low Dose Aspirin EC] 81 mg PO DAILY 07/14/15 [History] Buspirone HCl [Buspar] 15 mg PO TID 07/14/15 [History] Dutasteride [Avodart] 0.5 mg PO DAILY 07/14/15 [History] Lisinopril 2.5 mg PO DAILY 10/15/15 [History] Montelukast [Singulair] 10 mg PO HS 10/15/15 [History] Quetiapine Fumarate [Seroquel] 100 mg PO BID 10/15/15 [History] Simvastatin [Zocor] 20 mg PO HS 10/15/15 [History] Tamsulosin HCl [Flomax] 0.4 mg PO DAILY 10/15/15 [History] Cholecalciferol (Vitamin D3) [Vitamin D3] 10,000 unit PO QWEEK 10/26/16 [History ] traZODone [TraZODone] 150 mg PO HS 10/26/16 [History] Furosemide [Lasix] 20 mg PO DAILY 01/20/17 [History] Melatonin [Melatin] 6 mg PO HS 01/20/17 [History] Escitalopram [Lexapro] 20 mg PO DAILY 03/29/17 [History] Nystatin POWDER [Nystop] 1 appl TP BID 05/06/17 [History] HYDROcodone/Acet 5/325 mg [[place] 5-325 mg] 1 tab PO Q8H PRN #10 tablet 05/10/17 [Rx] Allergies/Adverse Reactions: 3 Allergy/AdvReac Type Severity Reaction Status Date / Time Banana Allergy See Verified 05/04/17 15:09 Comments chlorpheniramine Allergy See Verified 09/20/17 15:09 [From Chlor-Trimeton] Comments diazepam [From Valium] Allergy See Verified 05/04/17 15:09 Comments Penicillins Allergy See Verified 05/04/17 15:09 Comments tuberculin, purified protein Allergy See Verified 05/04/17 15:09 deriva Comments [From Aplisol] - Respiratory Orders None Smoking Cessation: Smoking cessation has been advised. For more information, call the [place] Tobacco Quit Line at 8-466-VRUL-NOW. - Lab Orders Lab Orders: Other (include drug levels w/frequency) (None) - Ancillary Orders May consult with Dentist, Clerical And Office Support Workers, Rn Rehabilitation PRN - Advance Directives Code Status: Full Code - Mobility Orders Other (None weight bearing until seen by Podiatry.) - Rehabiliation Orders Rehab Potential: Fair Rehab Orders: Evaluation for Physical Therapy - Diet Orders No Added Salt (PIOTR) (Diabetic ADA 1800) CERTIFICATION: I certify that the transfer of the above named patient to an Extended Care Facility is necessary for the continuing treatment of the diagnosis listed. The above information is true and accurate reflection of patient's current condition. Confidential - Redisclosure prohibited without a patient's written consent.
[2017-05-10 15:29] VITALS: BP 127/85
== END 2017-05-10 19:15 | DRG 493 ==
LOC: 3NENU
PROVIDERS: ADMIT Family Medicine; ATTEND Internal Medicine

== ENCOUNTER 2021-12-14 15:08 | Observation (INO) ==
[2021-12-14] MEDS ORDERED: Ondansetron 4 MG/2 ML VIAL IVP PRN (17:58)
[2021-12-14] MEDS ORDERED: Naloxone 0.4 MG/ML INJ IVP PRN (17:58)
[2021-12-14] MEDS: 0.9 % Sodium Chloride 1,000 ML IVC SCH (18:16)
[2021-12-15 02:34] LABS: Basophils % 0.4 %; Eosinophils # 0.1 K/mcL (0.0-0.6); Eosinophils % 1.3 %; Hematocrit 33.1 % (37.5-50.1); Hemoglobin 11.1 g/dL (12.9-16.9); Lymphocytes # 1.5 K/mcL (0.6-4.6); Lymphocytes % 31.9 %; Mean Corpuscular HGB Conc 33.5 g/dL (31.6-35.5); Mean Corpuscular Hemoglobin 29.8 pg (28.0-33.3); Mean Corpuscular Volume 88.7 fL (83.0-100.0); Mean Platelet Volume 9.4 fL (9.4-12.4); Monocytes # 0.5 K/mcL (0.0-1.3); Monocytes % 11.6 %; Neutrophils # 2.5 K/mcL (1.6-8.9); Platelet Count 183 K/mcL (140-400); Red Blood Count 3.73 M/mcL (4.19-5.50); Red Cell Distribution Width 13.9 % (11.5-14.5); Segmented Neutrophils % 54.8 %; White Blood Count 4.6 K/mcL (4.3-11.1)
[2021-12-15 02:54] LABS: BUN/Creatinine Ratio 28 (6-26); Blood Urea Nitrogen 22 mg/dL (8-23); Calcium 8.4 mg/dL (8.6-10.3); Carbon Dioxide 29 mEq/L (23-29); Chloride 107 mEq/L (98-107); Glucose 81 mg/dL (70-105); Osmolality,Calculated 294 (280-300); Potassium 3.7 mEq/L (3.5-5.1); Sodium 141 mEq/L (136-145); eGFR For African Americans > 60 (> 60); eGFR For Non-African Americans > 60 (> 60)
[2021-12-15] MEDS ORDERED: BuPROPion SR (12 HR) 150 MG TABLET PO SCH (08:00)
[2021-12-15] MEDS: 0.9 % Sodium Chloride 1,000 ML IVC SCH (08:43)
[2021-12-15] MEDS ORDERED: risperiDONE 1 MG TABLET PO SCH (09:00)
[2021-12-15] MEDS ORDERED: Finasteride 5 MG TABLET PO SCH (09:00)
[2021-12-15 15:52] VITALS: BP 104/70; PULSE 90; TEMP 97.8; O2SAT 92
[2021-12-15] MEDS ORDERED: Divalproex (24 HR) 250 MG TABLET PO SCH (16:00)
[2021-12-15] MEDS ORDERED: QUEtiapine Fumarate 100 MG TABLET PO SCH (21:00)
[2021-12-15] MEDS ORDERED: Melatonin 3 MG TABLET PO SCH (21:00)
== END 2021-12-15 19:12 | disposition home or self-care (01) ==
LOC: 3ANU → SUATTDRO 16:47
PROVIDERS: ADMIT Hospitalist; ATTEND Hospitalist